=== PATIENT | male | born 1950 | race Caucasian/White ===

== ENCOUNTER 2017-01-13 13:03 | Day surgery (SDC) | payer MEDICARE ==
[~2017-01-13] VITALS: Ht 175.3 cm; Wt 69.0 kg
--- NOTE | 2017-01-13 07:22 | PCM.HPANE ---
Patient Data Surgeon Admitting Provider: Attending Provider:Gary García MD Primary Care Physician:Alexandria Pino MD Other Provider:[facility] Reason for Visit Colon Cancer Screening Ht/WT & BMI Body Mass Index Allergies Coded Allergies: No Known Allergies (Verified Allergy, Unknown, 01/12/17) Medications Reported Medications Insulin Glargine (Lantus U100 Insulin Vial)100 Unit/Ml Vial1 Unit SUBQ #1 VIAL Ref 0 01/12/17 Insulin Human Lispro (HumaLOG U100 Insulin Vial)100 Unit/Ml Unit1 Unit SUBQ QID #1 VIAL Ref 0 Check blood sugars before meals and at bedtime. Use correction factor only before meals. Blood Sugar Lispro Correction: <151, 0 units; 151-175, 1 unit; 176-200, 2 units; 201-225, 3 units; 226-250, 4 units; 251-275, 5 units; 276-300, 6 units; 301-325, 7 units; 326-350, 8 units; 351-375, 9 units; 376-400, 10 units; >400, 12 units. 01/12/17 Atorvastatin (Lipitor)10 Mg Tab10 Mg PO DAILY Ref 0 01/12/17 Discontinued Reported Medications Tamsulosin (Flomax)0.4 Mg Capsule0.4 Mg PO DAILY Ref 0 01/12/17 Stop/Bang Risk Assessment Category Category 1A: Patient has history of documented sleep apnea, and HAS NOT received any narcotic, sedative or anesthesia administration during this stay. Category 1B: Patient has history of documented sleep apnea, and HAS received any narcotic , sedative or anesthesia administration during this stay Category 2: Patient has SUSPECTED Obstructive Sleep Apnea, and HAS received any narcotic , sedative or anesthesia administration during this stay. Category 3: Patient has SUSPECTED Obstructive Sleep Apnea and HAS NOT received narcotic, sedative or anesthesia administration during this stay. Category 4: Outpatient in Procedural Areas with known sleep apnea or who screen positive for High Risk via the STOP/BANG questionnaire. Plan Impression Patient chart reviewed, patient interviewed and anesthestic plan with risks, benefits, and alternatives discussed, and informed consent obtained. Other case not approved for anesthesia care. moved to nurse sedation protocol. Notified of change after chart reviewed and draft created. Sandro Posey MD Jan 13, 2017 07:22
[~2017-01-13 13:03] MED LIST: ATRV10T PO; INSLIS SUBQ; INSU100V7 SUBQ; Lactated Ringer's 1,000 ML IV ONE; Sodium Chloride LOK Flush 10 mL Syringe IV PRN; TAMS0.4C98 PO; fentaNYL-PF 50 mCg/mL 2 mL Inj IVPUSH PRN
[2017-01-13 13:19] VITALS: BP 151/88; PULSE 81; RESP 14; O2SAT 98
[2017-01-13] MEDS: 0.9% Sodium Chloride 1,000 ML IV PRN ×2 (13:30→13:44)
[2017-01-13 14:22] VITALS: BP 150/78; PULSE 68; RESP 14; O2SAT 98
[2017-01-13 14:28] VITALS: BP 151/81; PULSE 64; RESP 14; O2SAT 98
--- NOTE | 2017-01-13 14:39 | ENDO ---
[address] [address] ENDOSCOPY PROCEDURE PATIENT: MADELYN MALAGON : 1950 MR#: [id number] ADMIT: 01/13/2017 JOB ID: [id number] DATE: 01/13/2017 TYPE OF OPERATION: Colonoscopy with biopsy and snare polypectomy. PREOPERATIVE DIAGNOSIS(ES): Colorectal cancer. POSTOPERATIVE DIAGNOSIS(ES): 1. Three sigmoid polyps, largest size 2 mm removed by cold biopsy forceps. 2. There were three ascending colon polyps. Two were 1 cm ascending colon removed by hot snare polypectomy and one hemoclip placed and one ascending colon polyp 3 mm in size removed by cold biopsy forceps. ANESTHESIA: 1. Fentanyl 100 mcg. 2. Versed 5 mg IV administered. COMPLICATION: None. ESTIMATED BLOOD LOSS: Minimal. DESCRIPTION OF PROCEDURE: After risks and benefits were explained to the patient, informed consent was obtained. After anesthesia administered, colonoscope was inserted per rectum to cecum. Mucosa carefully examined. Prep of the patient was excellent. After the procedure was done, the scope withdrawn and procedure terminated. FINDINGS: Upon inspection of the anus, no masses, hemorrhoids, ulcers, fissures that were seen. Throughout the entire examination, there were three sigmoid polyps, largest size 3 mm, removed by cold biopsy forceps. There were three other polyps seen in the ascending colon, two of them were 1 cm and one was 3 mm. The 1 cm polyps were removed by hot snare polypectomy. One hemoclip was placed. Retroflexion was normal. IMPRESSIONS: 1. Three sigmoid polyps, 2 mm, removed with cold biopsy forceps. 2. Three ascending colon polyps, two of whom were 1 cm and one was 3 mm removed by hot snare polypectomy and biopsy and one hemoclip post polypectomy site. RECOMMENDATIONS: 1. Await pathology results. 2. Repeat colonoscopy in three years.
--- NOTE | 2017-01-19 14:13 | PATH ---
SURGICAL PATHOLOGY Attending Physician:Gary García MD CASE STATUS: Signed Out PATIENT NAME: MADELYN MALAGON PID: [id number] : 1950 DATE COLLECTED:01/13/2017 00:00 SPECIMEN: 1: Colon, Biopsy 2: Colon, Biopsy CLINICAL HISTORY: COLON POLYPS 1). SIGMOID COLON POLYPS 2). ASCENDING COLON POLYP FINAL DIAGNOSIS: 1.SIGMOID COLON POLYPS: BENIGN COLONIC MUCOSA WITH INTRAMUCOSAL LYMPHOID AGGREGATES. Negative for dysplasia and malignancy. Multiple microscopic levels examined. 2.ASCENDING COLON POLYP: SESSILE SERRATED ADENOMA, MULTIPLE FRAGMENTS. ICD10 CODE K63.5 D12.2 GROSS DESCRIPTION: The specimen is received in two formalin filled containers labeled with the patient's name. 1). The specimen is sublabeled "sigmoid colon polyp" and consists of 2 portions of tissue which aggregate to 0.3 x 0.3 x 0.2 CM. The specimen is entirely submitted in cassette 1A. 2). The specimen is sublabeled "ascending colon polyp" and consists of multiple portions of tissue which aggregate to 0.8 x 0.5 x 0.4 CM. The specimen is entirely submitted in cassette 2A. 01/14/2017 [facility] MICRO DESCRIPTION: See diagnosis. ICD-9 CODES: CPT CODES: 1: 97078 2: 37752 Electronically Signed Out Fiorella Patel MD [facility] Pathology [facility] [address], [place] [address] Technical component performed at [facility], [facility] [address], [place], [address]
== END 2017-01-13 23:59 | disposition home or self-care (01) ==
LOC: END 13:03
PROVIDERS: ATTEND Internal Medicine Gastroenterology
DX: Z12.11 Encounter for screening for malignant neoplasm of colon (principal); D12.2 Benign neoplasm of ascending colon; K63.5 Polyp of colon; E11.9 Type 2 diabetes mellitus without complications; E78.5 Hyperlipidemia, unspecified; Z79.4 Long term (current) use of insulin; Z79.899 Other long term (current) drug therapy
CPT/HCPCS: 45380; 45381; 45385; 99153; G0500; J2250; J3010; J7030